=== PATIENT | female | born 1965 | race Caucasian/White ===

== ENCOUNTER 2017-07-10 21:54 | Emergency (ER) | payer MEDICAID ==
[2017-07-10] MEDS: HYDROCODONE/APAP (5/325) TAB PO (23:18)
[2017-07-10] MEDS: TOBRAMYCIN/DEXAMETH 3.5 GM OPH OINT RIGHT EYE (23:26)
== END 2017-07-11 00:02 | disposition home or self-care (01) ==
LOC: FTE 07-11 00:02
DX: S05.01XA Injury of conjunctiva and corneal abrasion without foreign body, right eye, initial encounter (principal); I10 Essential (primary) hypertension; X58.XXXA Exposure to other specified factors, initial encounter; Y92.9 Unspecified place or not applicable
CPT/HCPCS: 99284; Z7502